=== PATIENT | male | born 1950 | race Caucasian/White ===

== ENCOUNTER → 2016-08-25 | Day surgery (SDC) | payer OTHER ==
[~2016-08-25] VITALS: Ht 172.7 cm; Wt 71.7 kg
[~2016-08-25] MED LIST: CEPHALEXIN 500500 M3 PO; NORCO 5-325 TA1 EACH PO; PREDNISONE 20 M20 MG PO; VENTOLIN HFA 1818 GM INH
--- NOTE | ~2016-08-25 | O ---
[facility] [place] [address] OPERATIVE REPORT Name: EDINSON WAN Room #: REG [facility] M.R.#: [id number] Admission: 08/25/16 Attend Phys: Roscoe Muse MD Discharge: Date of : 48 Report #: [id number] THIS REPORT FOR: //name// CC: Real Muse DATE OF SERVICE: 08/25/2016 PREOPERATIVE DIAGNOSIS: Right inguinal adenopathy clinically and also by PET scan. POSTOPERATIVE DIAGNOSIS: Right inguinal adenopathy clinically and also by PET scan. PROCEDURE PERFORMED: Right inguinal node biopsy. Three separate nodes were removed, two sent for histological evaluation and one sent for stain and culture. ANESTHESIA: IV sedation, local 0.25% Marcaine. COMPLICATIONS: None. SURGEON: Roscoe Muse M.D. DESCRIPTION OF PROCEDURE: With the patient in supine position under IV sedation, the right groin was prepped and draped in sterile fashion. 0.25% Marcaine was used to anesthetize the skin, the preoperative ultrasound was used to identify the lymph nodes. There is a couple of enlarged nodes at the superolaterally in the groin and then more medially there is some nodes that had a slightly more abnormal appearing architecture heart, more rounded looking than the flat. These nodes were targeted. Incision was made about 3 cm. The lymph nodes medially and inferiorly were removed. These were carefully dissected out. Clips were placed on the edges of the lymph node. Initially, a node was removed that is about 1.5 cm. Adjacent to this laterally, there was a 2 cm node, this was removed. The 1.5 cm node was sent for culture and stain. Laterally, there is an enlarged node, slightly superior to the other nodes. This was also removed. These two nodes were sent for histology. Specimen was given to pathology for the pathologist for flow cytometry. No bleeding was identified. The patient's subcutaneous tissue was closed with 4-0 PDS. Skin was closed with 5-0 PDS. The patient tolerated the procedure well. By: [id number] Roscoe Muse MD /nt
--- NOTE | ~2016-08-25 | H ---
[facility] [place] [address] HISTORY AND PHYSICAL Name: EDINSON WAN Room #: PRE [facility] M.R.#: [id number] Admission: Attend Phys: Roscoe Muse MD Discharge: Date of : 48 Report #: [id number] THIS REPORT FOR: //name// CC: Real Cash MD [facility] physician/PCP Roscoe Muse PREOPERATIVE DIAGNOSIS: Inguinal adenopathy, abnormal PET scan. HISTORY OF PRESENT ILLNESS: The patient is a 65-year-old who has a history of plaque psoriasis. The patient was advised to take Humira. Before taking Humira, the patient had a TB scan test to make sure he did not have any evidence of active TB. The patient underwent x-ray, was found to have pulmonary nodule. This then lead to CT scan and then eventually the PET scan. PET scan shows enlarged lymph nodes with highest activity in the range of 4s in the right inguinal node. The patient recommended lymph node biopsy to rule out lymphoma. The patient has had prostate cancer in 1998, treated with surgery. No radiation, no chemotherapy or hormone. No history of weight loss. He does have some symptoms of chills and sweats. He has had itching for years, mostly from his psoriasis. Eating well. Bowels are working well. Occasionally, constipation. There is a family history of lung cancer. No history of lymphoma or leukemia. The patient is here for right inguinal node biopsy. PAST MEDICAL HISTORY: Psoriasis, asthma, history of cellulitis in lower extremity, hernia surgery, prostatectomy. MEDICATIONS: Albuterol inhaler as needed. PAST SURGICAL HISTORY: Prostatectomy in 1998, left inguinal hernia in 1993, right inguinal hernia in 1996. FAMILY HISTORY: Autoimmune disease, lung cancer, heart disease, Alzheimer's. SOCIAL HISTORY: The patient is retired house nurse. He quit smoking greater than 5 years ago. He was a fairly heavy smoker 30+ years. He occasionally smokes cigar. The patient does drink 1-2 drinks a day. REVIEW OF SYSTEMS: The patient does have some deep cough condition. No chest pain, shortness of breath, palpitation. No extremity weakness, numbness. PHYSICAL EXAMINATION: GENERAL: Well-developed, well-nourished male in no acute distress. HEENT: Pupils react to light. Extraocular muscles are intact. No cervical adenopathy or JVD. LUNGS: Clear to auscultation. CARDIOVASCULAR: Heart regular rate and rhythm. No murmur or gallop. [facility] [address] [place] [address] HISTORY AND PHYSICAL Name: EDINSON WAN Room #: PRE [facility] M.R.#: [id number] Admission: Attend Phys: Roscoe Muse MD Discharge: Date of : 48 Report #: [id number] LYMPHATICS: Mild axillary adenopathy, would not consider it clinically significant. The patient does have fairly large inguinal nodes, right is larger and this is the area where the PET scan shows higher activity. ABDOMEN: Soft, nondistended, nontender. No mass, guarding, rigidity, rebound. EXTREMITIES: No cyanosis, clubbing or edema. IMPRESSION: The patient with a PET scan that was performed to evaluate pulmonary nodule. The pulmonary nodule does not , but he did have several nodes that lid up. The patient is recommended to undergo biopsy of right inguinal node. Several nodes are large, but on ultrasound, they have a fairly typical anatomy. I wanted to note that you have a different appearance on ultrasound. May have to target these with ultrasound guidance. The patient wishes to proceed. Risk of lymph collection was discussed. He understands this. He would like to have this done tomorrow. He has his birthday a couple of days from now and he would like to be able to celebrate that. By: [id number] Roscoe Muse MD /nt
--- NOTE | ~2016-08-25 | S ---
[facility] [address] [address] SURGICAL PATH RPT PROCEDURE Name: EDINSON WAN Room #: [facility] M.R.#: [id number] Admission: 08/25/16 Date of : 48 Discharge: Report #: [id number] Path Case #: [id number] PATHOLOGY REPORT COLLECTION DATE: 08/25/2016 RECEIVED DATE: 08/25/2016 SUBMITTING PHYS: Dr. Roscoe Muse OTHER PHYS: Dr. Chao Persaud SPECIMEN(S) RECEIVED: A.Right inguinal node * * * * * * * * * * * * FINAL DIAGNOSIS: "Right inguinal node," excisional biopsy: - Lymph node with dermatopathic lymphadenopathy. (see comment) COMMENT: Sections show fragments of lymph node with an overall retained but focally distorted lymph node architecture. Prominent sinus histiocytosis and scattered fairly well formed follicles showing reactive germinal centers are identified. Focal areas have expanded follicles with a loosely collected histiocytic process. The histiocytes have round to focally twisted nuclear contours and abundant amphophilic to slightly foamy cytoplasm. No pigment is seen. The background lymphocytes are predominantly small, round, and mature appearing with condensed chromatin and scant cytoplasm with larger lymphoid cells in the germinal centers. No markedly atypical lymphoid cells or Layton-Wai cells are seen. No well-formed granulomas, metastatic carcinoma, or geographic necrosis is identified. To confirm the flow cytometry findings and to identify cells in a tissue architectural context, properly controlled immunohistochemical and special stains are performed. (Block A1) CD20: highlights B-cells primarily in follicles PAX-5: highlights B-cells primarily in follicles CD3: stains interfollicular T-cells CD5: stains interfollicular T-cells, no B-cell co-expression CD43: highlights the T-cells and granulocytes, no B-cell co-expression CD10: stains scattered germinal centers BCL-6: stains scattered germinal centers BCL-2: the germinal centers are non-reactive CD23: highlights residual follicular dendritic cell meshwork CD21: highlights residual follicular dendritic cell meshwork Cyclin D-1: lacks diffuse nuclear staining [facility] [address] [place] [address] SURGICAL PATH RPT PROCEDURE Name: EDINSON WAN Room #: REG [facility] M.R.#: [id number] Admission: 08/25/16 Date of : 48 Discharge: Report #: [id number] Path Case #: [id number] MUM-1: stains scattered smaller cells (plasma cells) CD138: highlights scattered sinus plasma cells [place] and lambda (in situ hybridization): plasma cells are polyclonal Ki67a: increased staining within the germinal centers CD68: highlights the expanded collections of histiocytes S-100: highlights the expanded collections of histiocytes CD1A: highlights the expanded collections of histiocytes CD4: highlights a mildly increased CD4/CD8 ratio CD8: highlights a mildly increased CD4/CD8 ratio CD7: slight loss of staining in T-cells CD30: stains occasional scattered cells SERENE: stains occasional scattered cells AE1/AE3: non-reactive PSA: non-reactive PSAP: non-reactive AFB: negative for acid-fast organisms GMS: negative for fungal organisms PAS-DF: negative for pathologic organisms Flow cytometric immunophenotypic analysis was performed at [facility]. The diagnosis is "no diagnostic immunophenotypic evidence for non-Hodgkin lymphoma detected and no evidence for plasma cell neoplasm." There are 70.4% lymphocytes. Of the lymphocytes, there are 88% T-cells. CD7 expression is heterogeneous and ranging from negative to moderate intensity. CD4/CD8 ratio is 6.3. B-cells are 9% and polytypic. There are 3.2% plasma cells and cytoplasmic light chain studies demonstrate polytypic plasma cells. No monotypic B-cell population is detected. No definite loss of T-cell antigen expression is detected. The findings are not helpful for establishing a diagnosis of lymphoma at this time. Please see separate flow cytometry report from [employer] ([id number]). Overall, the diagnosis is lymph node with dermatopathic lymphadenopathy. No markedly atypical lymphoid cells are seen. Dermatopathic lymphadenopathy is a reactive condition and can be seen and associated with skin diseases including skin lymphomas. Clinical correlation is recommended. The case is discussed preliminarily with Dr. Roscoe Muse on 08/27/16 at approximately 11:00 a.m. (CLW:; d/t: 08/28/16) PATHOLOGIST: Charo Sinha M.D. REPORT ELECTRONICALLY SIGNED BY: Charo Sinha M.D. DATE/TIME: 08/28/2016 16:12 * * * * * * * * * * * * GROSS PATHOLOGY: The specimen is received fresh from the OR labeled with the patient's [address] [address] SURGICAL PATH RPT PROCEDURE Name: EDINSON WAN Room #: REG [facility] M.Sajan.#: [id number] Admission: 08/25/16 Date of : 48 Discharge: Report #: [id number] Path Case #: [id number] name and "right inguinal node" and consists of one red shen oval lymph node measuring 2.5 x 1.5 x 1.0 cm, and another tiny oval lymph node measuring 1.0 x 1.0 x 1.0 cm. The lymph nodes are bisected, touch preparations are made, one is stained with hematoxylin and eosin stain, and the other is air-dried for Diff-Quik stain. A tiny portion of the lymph node is submitted in RPMI and sent to [facility] for workup. The lymph nodes are submitted in entirety in A1 and A2. (IUV:csd; d/t: 08/25/2016) CLINICAL HISTORY: Right inguinal adenopathy, history of a lung lesion which was not PET-IDed, inguinal adenopathy is PET-positive. History of prostatic carcinoma in 1998. INITIAL CPT CODE(S): A; 39089, 23947, 72480, 05459, 84969, 34896, 94302, 12913, 68279, 81220, 69406, 96824, 22728, 69003, 80550, 87898, 10757, 30976, 02822, 36858, 32632, 01827, 96298, 01160, 20652, 39556, 89319, 76921, 90504, 97298, 42857 Professional services performed by [facility] at [facility] [address], [place] [address] Technical services performed by [facility] at [address] [place] [address], [address], [place] [address]. [facility] [address] [place] [address] PHONE: [phone] DIRECTOR: Tico Cuadra M.D. * * * END OF REPORT * * *
[2016-08-25 13:10] VITALS: BP 122/70
[2016-08-25 14:58] VITALS: BP 122/70
== END | disposition home or self-care (01) ==
LOC: OR 10:45
DX: I89.8 Other specified noninfective disorders of lymphatic vessels and lymph nodes (principal); L40.50 Arthropathic psoriasis, unspecified; J45.909 Unspecified asthma, uncomplicated; Z85.46 Personal history of malignant neoplasm of prostate; Z90.79 Acquired absence of other genital organ(s); Z80.1 Family history of malignant neoplasm of trachea, bronchus and lung; Z87.891 Personal history of nicotine dependence
CPT/HCPCS: 50010; 50101; 50386; 50403; 51301; 54118; 56524; 62110; 62900; 70005

== ENCOUNTER → 2016-10-21 | Outpatient (CLI) | payer OTHER | LOC: CAT 10:32 | DX: R91.8 Other nonspecific abnormal finding of lung field (principal) ==

== ENCOUNTER → 2017-04-20 | Outpatient (CLI) | payer OTHER ==
[2017-04-20 09:36] LABS: HEMATOCRIT 46.6 % (42.0-52.0); HEMOGLOBIN 15.9 gm/dL (14.0-18.0); MCH 32.3 pg (26.0-34.0); MCHC 34.1 g/dL (28.0-37.0); MCV 94.9 fL (80.0-100.0); RBC 4.91 mil/uL (4.50-6.00); RDW 13.8 % (10.5-14.5)
[2017-04-20 09:42] LABS: POTASSIUM 4.4 mmol/L (3.5-5.1)
[2017-04-20 09:56] LABS: ALBUMIN 3.5 g/dL (3.4-5.0); TOTAL BILIRUBIN 0.6 mg/dL (<0.1-1.0); TOTAL PROTEIN 7.2 g/dL (6.4-8.2)
== END ==
LOC: CAT 08:52
PROVIDERS: Internal Medicine Pulmonary Disease
DX: R91.1 Solitary pulmonary nodule (principal); R91.8 Other nonspecific abnormal finding of lung field; R59.1 Generalized enlarged lymph nodes; R97.20 Elevated prostate specific antigen [PSA]

== ENCOUNTER → 2017-07-09 | Outpatient (CLI) | payer OTHER | LOC: CAT 08:42 | DX: H47.20 Unspecified optic atrophy (principal); G31.9 Degenerative disease of nervous system, unspecified; R91.1 Solitary pulmonary nodule ==

== ENCOUNTER → 2017-07-12 | Outpatient (CLI) | payer OTHER ==
[2017-07-12] VITALS (10 sets, daily range): BP systolic 107–138; BP diastolic 77–88
[~2017-07-12] VITALS: Ht 175.3 cm; Wt 77.1 kg
--- NOTE | ~2017-07-12 | S ---
[facility] [place] [address] SURGICAL PATH RPT PROCEDURE Name: EDINSON BRANNON Room #: REG [facility] M.R.#: [id number] Admission: 07/12/17 Date of : 48 Discharge: Report #: [id number] Path Case #: [id number] PATHOLOGY REPORT COLLECTION DATE: 07/12/2017 RECEIVED DATE: 07/14/2017 SUBMITTING PHYS: Dr. Phill Brown OTHER PHYS: Dr. Vern Cash ADDENDUM REPORT (Order Date: 07/16/2017 15:19) ADDENDUM COMMENT: Properly controlled special stains are performed. Block A1 AFB - Negative for acid fast organisms GMS - Negative for fungal organisms The final diagnosis remains unchanged. (CLW:db; 07/16/2017) Professional services performed under supervision of [facility] Specialty Manufacturing Supervisor at [address] [place] [address]. Technical services performed by [facility] under supervision of a [facility] Specialty Manufacturing Supervisor at [address] [place] [address], [address] [place] [address]. ELECTRONICALLY SIGNED BY: Charo Sinha M.D. DATE/TIME:07/16/2017 17:47 SPECIMEN(S) RECEIVED: A.Left lung mass core biopsy * * * * * * * * * * * * FINAL DIAGNOSIS: "Left lung mass core biopsy", image-guided needle biopsy: - Alveolated lung tissue with organizing fibrosis, acute and chronic inflammation, and extravasated / acellular mucin. (See comment) (CLW:florencia; 07/15/2017) COMMENT: The clinical significance of the extravasated and acellular mucin is unclear and can be associated with both reactive and malignant conditions. No malignancy is identified in the material sampled. Special stains for microorganisms are pending and will be reported as an addendum. Clinical and radiographic correlation is required. The case is co-reviewed with Dr. Cheryl Self. (CLW:florencia; 07/15/2017) PATHOLOGIST: Charo Sinha M.D. [address] [address] SURGICAL PATH RPT PROCEDURE Name: EDINSON BRANNON Room #: REG CL M..#: [id number] Admission: 07/12/17 Date of : 48 Discharge: Report #: [id number] Path Case #: [id number] REPORT ELECTRONICALLY SIGNED BY: Charo Sinha M.D. DATE/TIME: 07/15/2017 13:08 * * * * * * * * * * * * GROSS PATHOLOGY: Received in formalin labeled "Edinson Brannon LLL CT lung BX" and consists of 2 extremely delicate and translucent tissue cores measuring 0.1 by less than 0.1 cm and 0.4 by less than 0.1 cm. There are entirely submitted as A1. (SARA; 07/14/2017) CLINICAL HISTORY: Evaluate for malignancy versus infection/TB INITIAL CPT CODE(S): A; 96542, 11463, 43518 Professional services performed by [facility] at [facility] [address], [place] [address] Technical services performed by [facility] at [address] [place] [address], [address], [place] [address]. [facility] [address] [place] [address] PHONE: [phone] DIRECTOR: Tico Cuadra M.D. * * * END OF REPORT * * *
[2017-07-12 08:45] LABS: HEMATOCRIT 45.8 % (42.0-52.0); HEMOGLOBIN 15.9 gm/dL (14.0-18.0); MCH 32.9 pg (26.0-34.0); MCHC 34.7 g/dL (28.0-37.0); MCV 94.7 fL (80.0-100.0); RBC 4.84 mil/uL (4.50-6.00); WBC 5.5 thou/uL (4.0-11.0)
[2017-07-12 09:02] LABS: CALCIUM 9.2 mg/dL (8.5-10.1); POTASSIUM 4.1 mmol/L (3.5-5.1)
[2017-07-12 09:37] LABS: PROTIME 10.1 Seconds (9.3-11.4)
[2017-07-14 19:11] LABS: HISTOPLASMA MYCELIAL-ID Negative (Negative)
[2017-07-14 22:09] LABS: HISTOPLASMA MYCELIAL-CF Negative (Neg:<1:2)
== END | disposition home or self-care (01) ==
LOC: CAT 07:55
PROVIDERS: Specialist
DX: J98.4 Other disorders of lung (principal); Z98.890 Other specified postprocedural states; Z85.46 Personal history of malignant neoplasm of prostate; J45.909 Unspecified asthma, uncomplicated

== ENCOUNTER → 2017-08-13 | Outpatient (CLI) | payer OTHER | LOC: RAD 13:36 | DX: J44.9 Chronic obstructive pulmonary disease, unspecified (principal); R91.1 Solitary pulmonary nodule; R91.8 Other nonspecific abnormal finding of lung field ==

== ENCOUNTER → 2017-09-20 | Outpatient (CLI) | payer OTHER | LOC: RAD 10:55 | DX: R91.1 Solitary pulmonary nodule (principal) ==

== ENCOUNTER → 2020-12-27 | Outpatient (CLI) | payer OTHER | LOC: RAD 11:03 | PROVIDERS: ATTEND Nurse Practitioner | DX: M47.812 Spondylosis without myelopathy or radiculopathy, cervical region (principal); M46.02 Spinal enthesopathy, cervical region; M48.02 Spinal stenosis, cervical region ==

== ENCOUNTER → 2021-05-28 | Outpatient (CLI) | payer OTHER | LOC: ULTRA 13:53 | PROVIDERS: ATTEND Nurse Practitioner | DX: R91.8 Other nonspecific abnormal finding of lung field (principal); R06.02 Shortness of breath ==

== ENCOUNTER → 2021-06-10 | Outpatient (CLI) | payer OTHER ==
[2021-06-10 09:52] LABS: CREATININE 1.1 mg/dL (0.7-1.3)
== END ==
LOC: CAT 08:56
PROVIDERS: ATTEND Nurse Practitioner
DX: R22.2 Localized swelling, mass and lump, trunk (principal)

== ENCOUNTER → 2021-06-20 | Outpatient (CLI) | payer OTHER ==
--- NOTE | 2021-06-26 13:08 | PATH ---
[facility] [place] [place] [address] PATHOLOGY RPT PROCEDURE Name: EDINSON BRANNON Room #: REG CL M.R.#: [id number] Admission: 06/20/21 Date of : 48 Discharge: Report #: [id number] Path Case #: [id number] [facility] Accession Number: [id number] . 01 Material submitted: . lymph node - LEFT NECK LYMPH NODE. Modifiers: left . 02 Diagnosis: Left neck lymph node, needle biopsy: - Involvement by metastatic adenocarcinoma. - Please see comment. (NATA:nani; 06/24/2021) . . The results are conveyed to Juliana nurse for EJ Miles, on 06/24/2021 at approximately 1410. (NATA:nani; 06/24/2021) MBR 06/24/2021 1412 Local . 02 Comment: Evaluation of the needle biopsy reveals clusters and small sheets of malignant cells, with rare crude glandular-type luminal structures. The tumor cells have ample eosinophilic cytoplasm, and contain focally hyperchromatic nuclei, with irregular nuclear membranes and scattered prominent nucleolus formation. Tumor appears within the fibroinflammatory background, as well as focally within lymphovascular spaces. . Immunophenotypically, the tumor is compatible with lung origin, with strong reactivity to both TTF-1 and Napsin A. Gastrointestinal markers are negative. . The case is seen in co-review, with consensus, by Dr. Tico Cuadra on 06/24/2021. . (CHARLOTTEK:nani; 06/24/2021) . 02 Addendum: . Special studies report received from [facility], [address] [place] [address], [address], [place], [address], on case [id number], labeled with their number [id number], dated 06/25/2021. . Flow Cytometry: Hematologic Neoplasia Assessment . Clinical History Lymphadenopathy [place] [address] PATHOLOGY RPT PROCEDURE Name: EDINSON BRANNON Room #: REG [facility].#: [id number] Admission: 06/20/21 Date of : 48 Discharge: Report #: [id number] Path Case #: [id number] Evaluation for lymphadenopathy . Specimen Lymph Node, Left Neck . Viability 41% (7AAD exclusion) . Interpretation Lymph Node, Left Neck: No significant lymphoid immunophenotypic abnormalities detected . Comments Correlation with available clinical, laboratory, and morphologic data is recommended. . Populations Analyzed Lymphocytes: 12% B-cells:2.1 %, polytypic/polyclonal sIg light chain pattern (K/L= 1.6:1) T-cells: no significant abnormalities of the markers tested CD4:CD8: 2.4 CD45 Negative 87% No significant reactivity with the markers tested Events/Debris: (may represent non-hematolymphoid cells, degenerated cells, debris, unlysed red blood cells, etc.) . Morphologic Evaluation A slide was reviewed for quality control engineer purposes only. . Specimen Description Total Cell Yield: 0.14 X 10 and 6 . Reagent(s) Used CD3, CD4, CD5, CD8, CD10, CD19, CD20, CD38, CD45, CD57, kappa, lambda . at [facility]. Ricardo Ma MD Pathologist . Intended Use Flow cytometry is optimally used to immunophenotypically characterize abnormal populations when they are detected. Negative flow cytometry results do not exclude lymphoma or neoplasia. Possible false negative flow cytometry results may occur in, but are not limited to, the following: neoplastic cells in Hodgkin lymphoma are not typically adequately represented by routine clinical flow cytometry; neoplastic cells may be lost or inadequately represented due to degeneration, sample processing, [address] [address] PATHOLOGY RPT PROCEDURE Name: EDINSON BRANNON Room #: REG CL [facility]#: [id number] Admission: 06/20/21 Date of : 48 Discharge: Report #: [id number] Path Case #: [id number] sampling artifact, or patchy involvement; plasma cells are typically underrepresented by flow cytometry; immature cells/blasts may be underrepresented due to hemodilution; myeloproliferative disorders and low grade myelodysplasia may not have immunophenotypic abnormalities or increased blasts. Correlation with all available clinical, laboratory, and morphologic data is always necessary to assess for the possibility of false negative flow cytometry results and to establish a diagnosis. Each marker in this analysis was used to assess for potential antigenic abnormalities or to evaluate detected abnormalities. . Any image or images that accompany this report are customer relations representative images only and should not be used to render a diagnosis. . Disclaimer(s) This test was developed and its performance characteristics determined by [facility]. It has not been cleared or approved by the Food and Drug Administration. . [facility] is a business unit of [facility] a wholly-owned subsidiary of [employer]. . This test was performed at [facility]. at [address], [place], [address] - Sales Representative [employer]: Andrew Kaur MD. . For inquiries, the physician may contact Lab: [phone] . A complete copy of the report is on file. . Professional services performed by [facility] at [address], [place] [address]. Technical services performed by [facility] at [address], [place] [address]. . (MLK:amj 06/26/2021) AZJ/06/26/2021 Addendum Electronically Signed by Lay Bell MD, Pathologist . 02 Electronically signed: . Lay Bell MD, Pathologist NPI- [id number] . 01 Gross description: . The specimen is received in formalin, labeled "Edinson Brannon, neck lymph node" and consists of 3 machuca-shen cylindrical needle core biopsies ranging in length from 1.5 cm to 2.0 cm and each averaging <0.1 cm in [facility] [address] [place] [address] PATHOLOGY RPT PROCEDURE Name: EDINSON BRANNON Room #: REG [facility] M.R.#: [id number] Admission: 06/20/21 Date of : 48 Discharge: Report #: [id number] Path Case #: [id number] diameter. This portion of the specimen is submitted in toto in A1-A3. . Also received with this case is a RPMI fluid filled container designated "Edinson Brannon lt neck lymph node" and consists of a machuca-shen cylindrical needle core biopsy (approximately 1.2 cm in length x <0.1 cm in diameter). This portion of the specimen is given to send outs for additional testing.(SITKA; 06/20/2021) DKA/DKA 06/20/2021 1905 Local . 02 Microscopic: . Immunohistochemical stain results (properly controlled): . Block A1: AE1/AE3 - tumor cells strongly positive. CK7 - tumor cells strongly positive. TTF-1 - tumor cells strongly positive (nuclear pattern). Napsin A - tumor cells strongly positive. P40 - tumor cells negative. CK20 - tumor cells negative. CDX2 - tumor cells negative. . (NATA:nani; 06/24/2021) . 02 Pathologist provided ICD-10: C77.0 . 02 CPT . 380463, S78989, K17404 Specimen Comment: A courtesy copy of this report has been sent to [phone] Specimen Comment: Report sent to Performed at: 01 [facility] [address] [id number] MD Avinash Macedo MD Phone: [phone] Performed at: 02 [facility] [address] [id number] MD Tico Cuadra MD Phone: [phone]
== END | disposition home or self-care (01) ==
LOC: ULTRA 08:46
PROVIDERS: ATTEND Nurse Practitioner
DX: C77.0 Secondary and unspecified malignant neoplasm of lymph nodes of head, face and neck (principal); R59.0 Localized enlarged lymph nodes; Z79.899 Other long term (current) drug therapy

== ENCOUNTER → 2021-07-03 | Outpatient (CLI) | payer OTHER ==
[2021-07-03 16:15] LABS: ABSOLUTE NEUTROPHILS 6.7 thou/uL (1.4-8.2); BASOPHILS 1.2 % (0.0-2.0); EOSINOPHILS 15.4 % (0.0-3.0); HEMATOCRIT 40.8 % (42.0-52.0); HEMOGLOBIN 13.6 gm/dL (14.0-18.0); MCH 30.5 pg (26.0-34.0); MCHC 33.3 g/dL (28.0-37.0); MCV 91.5 fL (80.0-100.0); MONOCYTES 7.5 % (1.0-8.0); PLATELET COUNT 288 thou/uL (150-400); POLYS 62.9 % (36.0-66.0); RBC 4.46 mil/uL (4.50-6.00); RDW 13.6 % (10.5-14.5); WBC 10.6 thou/uL (4.0-11.0)
[2021-07-03 16:33] LABS: ALBUMIN 3.6 g/dL (3.4-5.0); POTASSIUM 4.5 mmol/L (3.5-5.1); TOTAL BILIRUBIN 0.2 mg/dL (0.2-1.0); TOTAL PROTEIN 7.7 g/dL (6.4-8.2)
[2021-07-04 02:06] LABS: PSA < 0.1 ng/mL (0.0-4.0); TESTOSTERONE* 198 ng/dL (264-916)
[2021-07-04 04:06] LABS: HEPATITIS B SURFACE AG Negative (Negative)
[2021-07-05 14:07] LABS: FREE TESTOSTERONE 1.5 pg/mL (6.6-18.1)
== END ==
LOC: LAB 14:40
PROVIDERS: ATTEND Internal Medicine
DX: C34.12 Malignant neoplasm of upper lobe, left bronchus or lung (principal)

== ENCOUNTER → 2021-07-07 | Outpatient (CLI) | payer OTHER | LOC: ULTRA 13:31 | PROVIDERS: ATTEND Internal Medicine | DX: M79.605 Pain in left leg (principal); I87.1 Compression of vein ==

== ENCOUNTER → 2021-07-08 | Outpatient (CLI) | payer OTHER ==
[2021-07-08 10:27] LABS: CREATININE 0.9 mg/dL (0.7-1.3)
== END ==
LOC: MRI 08:32
PROVIDERS: ATTEND Internal Medicine
DX: I67.82 Cerebral ischemia (principal); J32.0 Chronic maxillary sinusitis; C34.12 Malignant neoplasm of upper lobe, left bronchus or lung; G31.9 Degenerative disease of nervous system, unspecified

== ENCOUNTER → 2021-07-16 | Outpatient (CLI) | payer OTHER ==
[2021-07-16 09:18] LABS: ABSOLUTE NEUTROPHILS 2.3 thou/uL (1.4-8.2); BASOPHILS 1.1 % (0.0-2.0); EOSINOPHILS 19.8 % (0.0-3.0); HEMOGLOBIN 13.7 gm/dL (14.0-18.0); LYMPHOCYTES 22.2 % (24.0-44.0); MCH 30.8 pg (26.0-34.0); MCHC 34.3 g/dL (28.0-37.0); MCV 89.6 fL (80.0-100.0); MONOCYTES 5.4 % (1.0-8.0); PLATELET COUNT 181 thou/uL (150-400); POLYS 51.5 % (36.0-66.0); RBC 4.46 mil/uL (4.50-6.00); WBC 4.6 thou/uL (4.0-11.0)
[2021-07-16 09:43] LABS: ALBUMIN 3.5 g/dL (3.4-5.0); CALCIUM 9.5 mg/dL (8.5-10.1); CREATININE 0.8 mg/dL (0.7-1.3); MAGNESIUM 1.9 mg/dL (1.8-2.4); PHOSPHORUS 3.9 mg/dL (2.6-4.7); POTASSIUM 4.1 mmol/L (3.5-5.1); TOTAL BILIRUBIN 0.4 mg/dL (0.2-1.0); TOTAL PROTEIN 7.6 g/dL (6.4-8.2)
== END ==
LOC: LAB 08:38
PROVIDERS: ATTEND Internal Medicine
DX: C34.12 Malignant neoplasm of upper lobe, left bronchus or lung (principal)